=== PATIENT | female | born 1995 | race Native Hawaiian/Other Pacific Islander ===

== ENCOUNTER 2020-09-24 17:47 | Inpatient (IN) | payer MEDICAID ==
[2020-09-24] MEDS ORDERED: NALOXONE 0.4 MG/1 ML INJ IV PRN (19:01)
[2020-09-24] MEDS ORDERED: fentaNYL 100 MCG/2 ML INJ IV PRN (19:01)
[2020-09-24] MEDS ORDERED: ONDANSETRON 4 MG/2 ML INJ IV PRN (19:01)
[2020-09-24] MEDS ORDERED: TERBUTALINE 1 MG/1 ML INJ SUB-Q PRN (19:01)
[2020-09-24] MEDS ORDERED: AMPICILLIN/NS 2 GM/100 ML 2 GM/100 ML BAG IV ONE (19:01)
[2020-09-24] MEDS ORDERED: MINERAL OIL 30 ML ORAL LIQD PO PRN (19:01)
[2020-09-24] MEDS ORDERED: LIDOCAINE (2%) 20 MG/1 ML VIAL 20 ML MDV INFILTRATI ONE (19:01)
[2020-09-24] MEDS ORDERED: ePHEDrine SULFATE 50 MG/1 ML INJ IV PRN (19:01)
[2020-09-24] MEDS ORDERED: BUTORPHANOL 2 MG/1 ML INJ IV PRN (19:01)
--- NOTE | 2020-09-24 19:07 | History and Physical Report ---
History of Present Illness Date of examination: 09/24/20 Chief complaint: Labor pains History of present illness: Pt reports onset of contractions yesterday, worsening in intensity since 12:00 today. Late entry to care at 13 3/7 weeks to [facility]. course complicated by maternal obesity (BMI 38), vitamin D deficiency (PO Vit D supplementation), and COVID-19 (two negative tests since diagnosis). Past History Past Medical History: no pertinent history Past Surgical History: no surgical history [employer]OV[employer]IST History: abnormal PAP smear (LSIL 04-03-2020) Family/Genetic History: none Social history: no significant social history, - Obstetrical History Expected Date of Delivery: 10/06/20 Actual Gestation: 38 Week(s) 2 Day(s) : 2 Para: 1 Hx # Term Pregnancies: 1 Number of Pregnancies: 0 Spontaneous Abortions: 0 Induced : 0 Number of Living Children: 1 #1 Gender: Female year: 2[age][birth year] Birthweight: 3.487 kg Method of Delivery: Vaginal Gestational age at delivery: 38 Complications: none Medications and Allergies Allergies Allergy/AdvReac Type Severity Reaction Status Date / Time No Known Allergies Allergy Unverified 09/24/20 19:08 Review of Systems All systems: negative - Vital Signs Vital signs: Vital Signs Pulse BP 96 H 134/87 09/24/20 18:20 09/24/20 18:20 Temp Pulse Resp BP Pulse Ox 98 F 96 H 18 134/87 09/24/20 18:27 09/24/20 18:27 09/24/20 18:27 09/24/20 18:27 - Physical Exam Breasts: Positive: normal Cardiovascular: Regular rate, Normal S1, Normal S2 Lungs: Positive: Clear to auscultation, Normal air movement Abdomen: Positive: normal appearance, soft Genitourinary (Female): Positive: normal external genitalia, normal perenium Vagina: Positive: normal moisture Uterus: Positive: enlarged Anus/Rectum: Positive: normal perianal skin Extremities: Positive: normal - Obstetrical FHR: category 1 Uterine Contraction Monitor Mode: External Cervical Dilatation: 5 (vertex, intact) Cervical Effacement Percentage: 80 station: -2 Uterine Contraction Frequency (min): 3-5 Uterine Contraction Duration: 60 Uterine Contraction Pattern: Regular Uterine Tone Measurement Phase: Resting Uterine Contraction Intensity: Mild Results All other labs normal. Assessment and Plan A: IUP at 38 2/7 weeks Category I tracing Active Labor GBS Positive P: Admit to L&D per routine orders Expectant Management GBS Prophylaxis
[2020-09-24] MEDS ORDERED: LACTATED RINGERS 1,000 ML IV SCH (19:15)
[2020-09-24 19:30] LABS: Hematocrit 42.9 % (30.3-42.9); Hemoglobin 14.3 gm/dl (10.1-14.3); Mean Corpuscular HGB Conc 33 % (30-34); Mean Corpuscular Volume 87 fl (79-97); Platelet Count 188 K/mm3 (140-440); Red Blood Count 4.94 M/mm3 (3.65-5.03); Red Cell Distribution Width 15.5 % (13.2-15.2)
[2020-09-24] MEDS ORDERED: OXYTOCIN DRIP 30 UNITS/500 ML BAG IV SCH (20:00)
[2020-09-24] MEDS ORDERED: LANOLIN/ZINC/DIMETHICONE (LANSINOH) 7 GM TP PRN (22:33)
[2020-09-24] MEDS ORDERED: diphenhydrAMINE 25 MG CAP PO PRN (22:33)
[2020-09-24] MEDS ORDERED: WITCH HAZEL/ GLYCERIN PAD TP PRN (22:33)
[2020-09-24] MEDS ORDERED: HYDROcodone/ACETAMINOPHEN 5-325 MG TAB PO PRN (22:33)
--- NOTE | 2020-09-24 22:43 | Procedure Note ---
OB Delivery Note - Delivery Date of Delivery: 09/24/20 (2216) Surgeon: TULIO ROONEY Estimated blood loss: 100cc - Vaginal Delivery presentation: vertex Delivery position: OA Intrapartum events: none Delivery induction: none Delivery monitor: external FHT, external uterine Route of delivery: Delivery placenta: spontaneous Delivery cord: 3 umbilical vessels Episiotomy: none Delivery laceration: none Anesthesia: none Delivery comments: of a live 6'10 male infant with Apgars of 7 and 8 over an intact perineum under IV pain control at 2216 on 09/24/2020. directly to maternal abd/chest, skin to skin contact. Delayed cord clamping; cord double clamped and cut by father of baby. Spontaneous delivery of placenta complete and intact with [place] side presenting at 2224. Cord blood collected. Fundus is firm and midline; located 4 below the U. Lochia is scant. GBS prophylaxis x 1 dose. - Infant A at 1 minute: 7 at 5 minutes: 8 Gender: Male (6'10)
[2020-09-24] MEDS ORDERED: AMPICILLIN/NS 1 GM/50 ML 1 GM/50 ML BAG IV SCH (23:03)
[2020-09-25] MEDS: IBUPROFEN 600 MG TAB PO SCH ×2 (01:09→17:02)
[2020-09-25] MEDS: PRENATAL VIT27-FE FUMARATE-FOLIC ACID VIT TAB PO SCH (10:28)
--- NOTE | 2020-09-25 13:22 | Progress Note ---
Assessment and Plan PPD # 1 A: S/P p: Continue routine pp care May d/c home tomm if stable Encourage ambulation and hydration Subjective - Subjective Date of service: 09/25/20 Principal diagnosis: Patient reports: appetite normal, voiding normally, pain well controlled, ambulating normally [place]: doing well, bottle feeding Objective - Vital Signs Latest vital signs: Vital Signs Temp Pulse Resp BP BP Pulse Ox 09/25/20 12:12 97.9 F 80 20 115/64 97 09/25/20 07:45 98.1 F 84 20 104/54 98 09/25/20 06:00 98.4 F 92 H 18 114/76 09/25/20 02:09 18 09/25/20 01:09 18 09/25/20 00:21 98.3 F 97 H 20 99/56 97 09/24/20 23:50 87 111/59 09/24/20 23:35 97 H 113/70 09/24/20 23:20 90 110/73 09/24/20 23:05 99 H 105/61 09/24/20 22:50 104 H 115/60 09/24/20 22:35 99 H 110/68 09/24/20 22:34 98.4 F 99 H 18 110/68 09/24/20 21:52 118 H 140/77 09/24/20 21:27 130 H 98 09/24/20 21:22 134 H 118/57 97 09/24/20 21:17 125 H 96 09/24/20 21:12 107 H 97 09/24/20 21:07 119 H 98 09/24/20 21:02 111 H 98 09/24/20 20:57 111 H 98 09/24/20 20:53 104 H 126/61 09/24/20 20:52 113 H 98 09/24/20 20:47 110 H 98 09/24/20 20:42 109 H 97 09/24/20 20:37 108 H 98 09/24/20 20:32 103 H 98 09/24/20 20:22 111 H 121/77 09/24/20 19:51 100 H 134/91 09/24/20 19:18 98 F 103 H 18 145/82 09/24/20 18:27 98 F 96 H 18 134/87 09/24/20 18:20 96 H 134/87 Intake and Output 09/24/20 09/25/20 09/25/20 22:59 06:59 14:59 Intake Total 240 120 Output Total 200 150 Balance 40 -30 Intake: Oral 240 120 Output: Urine 200 150 Void 200 150 Other: Total, Intake Amount 240 120 Total, Output Amount 200 150 # Voids Void 1 Weight 230 lb Estimated Blood Loss 100 - Exam Breasts: Present: normal Abdomen: Present: normal appearance, soft, normal bowel sounds Vulva: both: normal Uterus: Present: normal, firm, fundal height below umbilicus Extremities: Present: normal - Labs Labs: Abnormal lab results 09/24/20 Range/Units 19:00 WBC 13.9 H (4.5-11.0) K/mm3 RDW 15.5 H (13.2-15.2) %
[2020-09-25 15:13] LABS: Hematocrit 36.4 % (30.3-42.9); Hemoglobin 11.9 gm/dl (10.1-14.3)
--- NOTE | 2020-09-25 15:28 | Discharge Summary ---
Providers - Providers Date of Admission: 09/24/20 19:01 Date of discharge: 09/26/20 Attending physician: RAÚL CISNEROS Primary care physician: RAÚL CISNEROS Hospitalization Reason for admission: active labor Delivery: Episiotomy: none Laceration: none Other procedures: none complications: none Discharge diagnosis: IUP at term delivered baby: male Hospital course: Pt was admitted to [facility] in active labor. She had a and a pp stay w/o complications. See H&P, delivery summary, and pp notes. Condition at discharge: Stable Disposition: TO HOME OR SELFCARE Plan - Discharge Medications Prescriptions: 168/Iron/Folic/Omega3 [One-A-Day -1 Softgel] 1 each PO DAILY #120 capsule - Provider Discharge Summary Additional instructions: [] Smoking cessation referral if applicable(refer to patient education folder for contact #) [] Refer to [facility]'s [facility] Booklet Call your doctor immediately for: * Fever > 100.5 * Heavy vaginal bleeding ( >1 pad per hour) * Severe persistent headache * Shortness of breath * Reddened, hot, painful area to leg or breast * Drainage or odor from incision. * Keep incision clean and dry at all times and follow doctor's instructions regarding bathing/showering - Follow up plan Follow up: RAÚL CISNEROS MD [Primary Care Provider] - 6 Weeks
[2020-09-25] MEDS ORDERED: MEASLES, MUMPS & RUBELLA 12,500 UNIT/0.5 ML VACCINE SUB-Q ONE (16:52)
[2020-09-26] MEDS: IBUPROFEN 600 MG TAB PO SCH ×3 (05:54→12:54)
[2020-09-26] MEDS ORDERED: MEASLES, MUMPS & RUBELLA 12,500 UNIT/0.5 ML VACCINE SUB-Q ONE (06:00)
[2020-09-26] MEDS: PRENATAL VIT27-FE FUMARATE-FOLIC ACID VIT TAB PO SCH (10:55)
[2020-09-26 17:24] VITALS: BP 112/64
== END 2020-09-26 18:40 | disposition home or self-care (01) | DRG 774 ==
LOC: TRG 17:47 → APU 17:49 → LD 19:01 → TRG 19:01 → OB 09-25 00:50
PROVIDERS: ADMIT Obstetrics & Gynecology; ATTEND Obstetrics & Gynecology
PROC: 10E0XZZ Delivery of Products of Conception, External Approach (ICD-10-PCS; principal; 2020-09-24)
DX: O98.82 Other maternal infectious and parasitic diseases complicating childbirth (principal); O99.214 Obesity complicating childbirth; E66.9 Obesity, unspecified; Z20.822 Contact with and (suspected) exposure to COVID-19; Z3A.38 38 weeks gestation of pregnancy; Z37.0 Single live birth
CPT/HCPCS: 36415; 85014; 85018; 85027; 86850; 86900; 86901; 90471; 90707; G0378; A6250; J0290; J3010; J7120; U0003

== ENCOUNTER 2022-04-11 08:47 | Emergency (ER) | payer MEDICAID ==
[2022-04-11 09:12] VITALS: BP 130/81
== END 2022-04-11 18:52 | disposition left against medical advice (07) ==
LOC: ED 08:47
DX: H57.10 Ocular pain, unspecified eye (principal); H53.8 Other visual disturbances; Z53.21 Procedure and treatment not carried out due to patient leaving prior to being seen by health care provider; J34.89 Other specified disorders of nose and nasal sinuses